=== PATIENT | male | born 1950 | race Caucasian/White ===

== ENCOUNTER 2021-05-30 10:39 | Emergency (ER) | payer OTHER ==
--- OUTSIDE RECORDS SUMMARY | 2021-05-30 10:46 | XMS REPORT | Continuity of Care Document ---
:1950 Author Organization [facility] t Address [address] [place] [address] Care Team Providers Name Role Phone Jerson Palacio MD Primary Care Physician RUTH Attending Clinician Unavailable Sailaja Babb Attending Clinician [phone] Raffi Dupont MD Attending Clinician Ruth GARZON Attending Clinician VIOLET OSPINA Attending Clinician Unavailable RUTH Admitting Clinician Unavailable VIOLET OSPINA Admitting Clinician Unavailable Problems This patient has no known problems. Allergies, Adverse Reactions, Alerts Allergy Allergy Status Severity Reaction(s) Onset Inactive Treating Comm ents Source Name Type Date Date Clinician Meperidi Propensi Active Rash 2017-[address] [facility] [address] [facility] 12[facility]17 [facility] - [facility]:00: Medical reaction 00 [facility] Erythrom Propensi Active Rash 2017-[address] [facility] [address] [facility] - adverse 00:[facility]: Medical reaction 00 Center [facility] Social History Social Habit Start Date Stop Date Quantity Comments Source Sex Assigned At [facility] Tobacco use and 2018-10-18 2018-10-18 Never used [facility] kes - exposure 00:00:00 00:00:00 [facility] Alcohol intake 2018-10-18 2018-10-18 [facility]:00 alcohol (finding) [facility] Alcohol Comment 2018-10-17 2018-10-[address] [facility] Smoking Status Start Date Stop Date Source Never sm[facility] Medications Ordered Filled Start Stop Current Ordering Indication Dosage Frequency Signature Comments Components Source Medication Medication Date Date Medication? Clinician (SIG) Name Name tamsulosin 2017-11 Yes .4mg [id number] Take 0.[address] [facility] (FLOMAX) 1-21 [id number] mg by Luke s - 0.4 mg Cap 11:00: 3D mouth 3 Medi alejandro 24 hr 19 (three) Center capsule times daily. amoxicillin 2017-11 Yes 500mg Q.[id number] Take [address] (AMOXIL) 1-21 [id number] mg by Luke s - 500 MG 11:00: 3D mouth 3 Medical capsule 19 (three) Center times daily. atorvastati 2017-11 Yes 40mg QD Take [address] [facility] (LIPITOR) 1-21 by mouth Luke s - 40 MG 11:00: daily. Medical tablet 19 Center Procedures This patient has no known procedures. Plan of Care Planned Activity Planned Date Details Comments Source Future Scheduled Test 2028-10-18 [facility]oplasm of [facility] colon (procedure) [code = 181263920] Future Scheduled Test 2020-07-29 INFLUENZA VACCINE (#1) [facility] - 00:[facility]:00 [code = INFLUENZA Medical Ce nter VACCINE (#1)] Future Scheduled Test 2014 PNEUMOCOCCAL 65+ [facility] - 00:00:00 (2 of 2 - PPSV23) Medical Ce nter [code = PNEUMOCOCCAL 65+ YRS (2 of 2 - PPSV23)] Future Appointment 2021-07-10 Juan Pablo Ospina MD, [address] [facility] - 08:00:[address] [place] [address] Future Appointment 2021-07-10 Juan Pablo Ospina MD, [address] [facility] - 08:00:[address] [place] [address] Encounters Start End Encounter Admission Attending Care Care Encounter Source Date/Time Date/Time Type Type Clinicians Facility Department ID 2019-09-03 Inpatient KEYSHAWN BLAIR [facility] [id number] [place] 00:00:00 [facility] 2021-05-05 2021-05-05 Outpatient Hol[place], U U [id number] 00:00:00 00:00:00 Phu [id number] Sailaja [id number] 2019-08-21 2019-08-21 Office Kathi Dupont BCM [id number] 08:41:13 08:56:13 Visit Nugent AMBULATOR [id number] Y [id number] 2019-08-17 2019-08-17 Office Keyshawn Miranda BC [id number] 16:18:35 16:53:42 Visit AMBULATOR [id number] Y [id number] Results Test Description Test Time Test Comments Results Result Comments Source TISSUE EXAM 2018-10-23 Surgical Pathology 17:33:00 Report Case: [id number] Authorizing Provider: Juan Pablo Ospina MD Collected: 10/18/2018 0900 Ordering Location: [facility] Received: 10/18/2018 1407 SERVICES Pathologist: Lilli Reeder MD Specimen: Polyp, Colon - Cecum, eleview lift and hot snare COLON POLYP, BIOPSY: - TUBULAR ADENOMA - NO HIGH GRADE DYSPLASIA CC/pl Signing Pathologist Direct Phone Line: [phone] nically signed by Lilli Reeder MD on 10/23/2018 at 5:33 [id number] for colon cancer Cecum colon polypThe specimen is received in a formalin-filled container and labeled with the patient's information and labeled "cecum colon polyp" and consists of a busch polyp measuring 1 x 0.6 x 0.4 cm. Resection margin is inked blue. The specimen is bisected and submitted entirely A1. CG/pl Performed
[2021-05-30 11:11] LABS: Urine Blood 3+ (Negative); Urine Glucose Negative (Negative); Urine Protein Negative (Negative); Urine pH 5.5 (5.0-7.0)
[2021-05-30 11:24] LABS: Absolute Lymphocytes (CBC) 1.2 K/uL (0.7-4.9); Basophils % 0.3 % (0-1.3); Hematocrit 44.8 % (39.6-49.0); Lymphocytes % 11.9 % (15.3-44.8); MPV 8.9 fL (7.6-11.3); RBC Red Blood Cell Count 4.54 M/uL (4.33-5.43)
[2021-05-30 11:41] LABS: Albumin 3.8 g/dL (3.4-5.0); Bilirubin Direct 0.4 mg/dL (0-0.2); Bilirubin Total 2.2 mg/dL (0.2-1.0); Potassium 4.4 mmol/L (3.5-5.1); Protein, Total 7.6 g/dL (6.4-8.2)
--- NOTE | 2021-05-30 12:05 | RAD REPORT ---
EXAM DESCRIPTION: CT - Stone Protocol - 05/30/2021 11:54 am CLINICAL HISTORY: Flank pain. FLANK PAIN TECHNIQUE: Axial images were obtained without oral or IV contrast. Lack of contrast limits solid org an and vascular assessment. The [id number] spans the entirety of the system partially obscuring uppermost abdomen and lung bases. Coronal reformatted images were obtained and reviewed. All CT scans are performed using dose optimization technique as appropriate and may include automated exposure control or mA/KV adjustment according to patient size. FINDINGS: The lower lung bustamante are clear. Small hiatal hernia. Small fat containing umbilical herni a. Bilateral inguinal hernias are present containing fat. Imaged portions of the liver and spleen show no suspicious findings on non-contrast imaging. The panc reas and adrenal glands are normal. No pathologic lymphadenopathy in the abdomen or pelvis. Mild right hydronephrosis and hydroureter is noted caused by a 4 mm stone mid right ureter. No left-s ided urinary tract stone or hydronephrosis. No bowel obstruction, free air, free fluid or abscess. Prominent diverticulosis of the colon is prese nt with retained stool. No diverticulitis findings are seen.The appendix is not identified as a discr ete structure, however, no secondary findings of appendicitis are identified. Mild to moderate lumbar degenerative changes. IMPRESSION: 4 mm stone mid right ureter resulting in mild right hydronephrosis. Prominent diverticulosis of the colon containing moderate stool.
[2021-05-30] MEDS ORDERED: MORPHINE 4 MG/ML SYR ONE (13:04)
[2021-05-30] MEDS ORDERED: ONDANSETRON 4 MG/2 ML VIAL ONE (13:04)
[2021-05-30] MEDS ORDERED: TAMSULOSIN 0.4 MG SR CAP ONE (13:05)
[2021-05-30] MEDS ORDERED: KETOROLAC 30 MG/ML INJ ONE (13:05)
--- NOTE | 2021-05-30 13:15 | ER ---
Nurse's Notes [facility] Name: Alphonse Killian Age: 70 yrs Sex: Male : 1950 Arrival Date: 05/30/2021 Time: 10:42 Bed 2 Private MD: Diagnosis: Calculus of ureter Presentation: 05/30 10:55 Chief complaint: Patient states: Right flank pain intermittent x 1.5 weeks. Coronavirus kg screen: Client denies travel out of the [place] in the last 14 days. At this time, unable to obtain information related to travel outside the [place] At this time, the client does not indicate any symptoms associated with coronavirus-19. Ebola Screen: Patient negative for fever greater than or equal to 101.5 degrees Fahrenheit, and additional compatible Ebola Virus Disease symptoms Patient denies exposure to infectious person. Patient denies travel to an Ebola-affected area in the 21 days before illness onset. Initial Sepsis Screen: Does the patient meet any 2 criteria? No. Patient's initial sepsis screen is negative. Does the patient have a suspected source of infection? No. Patient's initial sepsis screen is negative. Risk Assessment: Do you want to hurt yourself or someone else? Patient reports no desire to harm self or others. Onset of symptoms was May 20, 2021. 10:55 Method Of Arrival: Ambulatory kg 10:55 Acuity: VANESSA 3 kg Triage Assessment: 10:58 General: Appears in no apparent distress. Behavior is calm, cooperative, appropriate kg for age, quiet. Pain: Complains of pain in Right flank Pain currently is 4 out of 10 on a pain scale. at worst was 10 out of 10 on a pain scale. level that patient reports is acceptable is 3 out of 10 on a pain scale. Historical: - Allergies: 10:57 No Known Allergies; kg - PMHx: 10:58 BPH; Hypercholesterolemia; kg - PSHx: 10:57 Appendectomy; Tonsillectomy; Left knee sx; kg - Immunization history:: Adult Immunizations up to date, Client reports receiving the 2nd dose of the Covid vaccine, Date received: December 2020. - Social history:: Smoking status: Patient denies any tobacco usage or history of. Patient uses alcohol, on a daily basis. one glass of wine a night. Screenin:00 Abuse screen: Denies threats or abuse. Denies injuries from another. Nutritional kg screening: No deficits noted. Tuberculosis screening: No symptoms or risk factors identified. Fall Risk None identified. No fall in past 12 months (0 pts). No secondary diagnosis (0 pts). No IV (0 pts). Ambulatory Aid- None/Bed Rest/Nurse Assist (0 pts). Gait- Normal/Bed Rest/Wheelchair (0 pts) Mental Status- Oriented to own ability (0 pts). Total Garcia Fall Scale indicates No Risk (0-24 pts). Assessment: 11:00 General: Appears in no apparent distress. Behavior is calm, cooperative, appropriate ll1 for age. Pain: Complains of pain in R lower back Quality of pain is described as aching. Neuro: No deficits noted. Cardiovascular: No deficits noted. Respiratory: No deficits noted. GI: Abdomen is flat, Bowel sounds present X 4 quads. Abd is soft and non tender X 4 quads. Reports. : Denies burning with urination. 12:00 Reassessment: No changes from previously documented assessment. Patient and/or family ll1 updated on plan of care and expected duration. Pain level reassessed. Patient is alert, oriented x 3, equal unlabored respirations, skin warm/dry/pink. 13:00 Reassessment: No changes from previously documented assessment. Patient and/or family ll1 updated on plan of care and expected duration. Pain level reassessed. Patient is alert, oriented x 3, equal unlabored respirations, skin warm/dry/pink. Patient states feeling better. Vital Signs: 10:55 BP 133 / 79; Pulse 63; Resp 20; Temp 98.4(O); Pulse Ox 97% ; Weight 83.1 kg (R); Height kg 6 ft. 0 in. (182.88 cm); Pain 4/10; 13:28 BP 116 / 66; Pulse 55; Resp 17; Pulse Ox 94% on R/A; ll1 13:28 Pain 1/10; ll1 10:55 Body Mass Index 24.85 (83.10 kg, 182.88 cm) kg ED Course: 10:42 Patient arrived in ED. mr 10:54 Fox Martinez PA is PHCP. jm 10:54 Otis Moore MD is Attending Physician. jm 10:57 Triage completed. kg 11:00 Arm band placed on right wrist. kg 11:01 Sharan Morton, RN is Primary Nurse. ll1 11:02 Patient placed in an exam room, on a stretcher. ll1 11:05 Inserted saline lock: 22 gauge in right antecubital area, using aseptic technique. ll1 Blood collected. 11:17 Patient has correct armband on for positive identification. Bed in low position. Call ll1 light in reach. Side rails up X 1. 11:54 CT Stone Protocol In Process Unspecified. EDMS 12:55 Basic Metabolic Panel Sent. sv 13:28 No provider procedures requiring assistance completed. IV discontinued, intact, ll1 bleeding controlled, No redness/swelling at site. Pressure dressing applied. Administered Medications: 12:52 Drug: Flomax (tamsulosin) 0.4 mg Route: PO; ll1 13:29 Follow up: Response: No adverse reaction; RASS: Alert and Calm (0) 1 12:52 Drug: Ketorolac 15 mg Route: IVP; Site: right antecubital; 1 13:29 Follow up: Response: No adverse reaction; Pain is decreased; RASS: Alert and Calm (0) ll1 12:52 Drug: morphine 4 mg Route: IVP; Site: right antecubital; ll1 13:29 Follow up: Response: No adverse reaction; Pain is decreased; RASS: Alert and Calm (0) ll1 12:52 Drug: Zofran (Ondansetron) 4 mg Route: IVP; Site: right antecubital; ll1 13:29 Follow up: Response: No adverse reaction 1 Outcome: 13:15 Discharge ordered by . codi 13:29 Discharged to home ambulatory. ll1 13:29 Condition: stable 13:29 Discharge instructions given to patient, Instructed on discharge instructions, follow up and referral plans. Demonstrated understanding of instructions, follow-up care. 13:30 Patient left the ED. 1 Signatures: Dispatcher [employer] EDMS Yolanda Melo, Fox Spicer RN, PA PA jmm Rivera, Mary mr Sharan Morton, RN RN ll1 Zoya Wolff RN RN kg
--- NOTE | 2021-05-30 13:15 | EDPHYS ---
Physician Documentation [facility] Name: Alphonse Killian Age: 70 yrs Sex: Male : 1950 Arrival Date: 05/30/2021 Time: 10:42 Bed 2 Private MD: ED Physician Otis Moore HPI: 05/30 11:15 This 70 yrs old Male presents to ER via Ambulatory with complaints of jmm Possible Kidney Stone. 11:15 The patient complains of pain in the right flank. Onset: The symptoms/episode jmm began/occurred gradually, 1.5 week(s) ago. Modifying factors: The symptoms are alleviated by nothing. the symptoms are aggravated by nothing. Associated signs and symptoms: Pertinent negatives: diarrhea, hematuria, pain radiating to the lower extremities, vomiting. The patient has not experienced similar symptoms in the past. This is 70/m with a history of bph, hlp that presents to the ED with complaints of right flank pain. Patient has concerns he may have a kidney stone. Denies vomiting, abdominal pain, diarrhea, gross hematuria. . Historical: - Allergies: 10:57 No Known Allergies; kg - PMHx: 10:58 BPH; Hypercholesterolemia; kg - PSHx: 10:57 Appendectomy; Tonsillectomy; Left knee sx; kg - Immunization history:: Adult Immunizations up to date, Client reports receiving the 2nd dose of the Covid vaccine, Date received: December 2020. - Social history:: Smoking status: Patient denies any tobacco usage or history of. Patient uses alcohol, on a daily basis. one glass of wine a night. ROS: 11:15 Constitutional: Negative for fever, chills, and weight loss, Cardiovascular: Negative jmm for chest pain, palpitations, and edema, Respiratory: Negative for shortness of breath, cough, wheezing, and pleuritic chest pain. 11:15 Back: Positive for pain with movement. 11:15 All other systems are negative. Exam: 11:15 Constitutional: This is a well developed, well nourished patient who is awake, alert, jmm and in no acute distress. Head/Face: atraumatic. Eyes: EOMI, no conjunctival erythema appreciated ENT: Moist Mucus Membranes Neck: Trachea midline, Supple Chest/axilla: Normal chest wall appearance and motion. Cardiovascular: Regular rate and rhythm. No edema appreciated Respiratory: Normal respirations, no respiratory distress appreciated Abdomen/GI: Non distended, soft 11:15 MS/ Extremity: Moves all extremities, no obvious deformities appreciated, no edema noted to the lower extremities Neuro: Awake and alert, normal gait Psych: Behavior is normal, Mood is normal, Patient is cooperative and pleasant 11:15 Back: pain, that is mild, of the right mid back. Vital Signs: 10:55 BP 133 / 79; Pulse 63; Resp 20; Temp 98.4(O); Pulse Ox 97% ; Weight 83.1 kg (R); Height kg 6 ft. 0 in. (182.88 cm); Pain 4/10; 13:28 BP 116 / 66; Pulse 55; Resp 17; Pulse Ox 94% on R/A; ll1 13:28 Pain 1/10; ll1 10:55 Body Mass Index 24.85 (83.10 kg, 182.88 cm) kg MDM: 11:13 Patient medically screened. codi 13:10 Data reviewed: vital signs, nurses notes. Counseling: I had a detailed discussion with codi the patient and/or guardian regarding: the historical points, exam findings, and any diagnostic results supporting the discharge/admit diagnosis, lab results, radiology results, the need for outpatient follow up, to return to the emergency department if symptoms worsen or persist or if there are any questions or concerns that arise at home. ED course: Patient is alert and non toxic in appearance in the ED. Will follow up with urology for evaluation. Patient is otherwise given strict return precautions. patient understood and agrees with the plan of care. . 05/30 11:11 Order name: Urine Dipstick-Ancillary; Complete Time: 11:47 [facility] 05/30 11:13 Order name: Basic Metabolic Panel [facility] 05/30 11:13 Order name: CBC with Diff; Complete Time: 11:47 [facility] 05/30 11:13 Order name: Hepatic Function; Complete Time: 11:47 [facility] 05/30 11:13 Order name: Lipase; Complete Time: 11:47 [facility] 05/30 11:14 Order name: Basic Metabolic Panel; Complete Time: 11:47 [facility] 05/30 11:13 Order name: IV Saline Lock; Complete Time: 11:37 [facility] 05/30 11:13 Order name: Labs collected and sent; Complete Time: 11:37 [facility] 05/30 11:13 Order name: CT Stone Protocol; Complete Time: 12:10 [facility] 05/30 11:47 Order name: Urine Dipstick-Ancillary (obtain specimen); Complete Time: 12:15 [facility] Administered Medications: 12:52 Drug: Flomax (tamsulosin) 0.4 mg Route: PO; ll1 13:29 Follow up: Response: No adverse reaction; RASS: Alert and Calm (0) ll1 12:52 Drug: Ketorolac 15 mg Route: IVP; Site: right antecubital; ll1 13:29 Follow up: Response: No adverse reaction; Pain is decreased; RASS: Alert and Calm (0) ll1 12:52 Drug: morphine 4 mg Route: IVP; Site: right antecubital; ll1 13:29 Follow up: Response: No adverse reaction; Pain is decreased; RASS: Alert and Calm (0) ll1 12:52 Drug: Zofran (Ondansetron) 4 mg Route: IVP; Site: right antecubital; ll1 13:29 Follow up: Response: No adverse reaction ll1 Disposition Summary: 05/30/21 13:15 Discharge Ordered Location: Home [facility] Condition: Stable [facility] Diagnosis - Calculus of ureter [facility] Followup: [facility] - With: Private Physician - When: 2 - 3 days - Reason: Recheck today's complaints, Continuance of care, Re-evaluation by your physician Discharge Instructions: - Discharge Summary Sheet [facility] - Kidney Stones [facility] - Dietary Guidelines to Help Prevent Kidney Stones [facility] Forms: - Medication Reconciliation Form [facility] - Thank You Letter [facility] - Antibiotic Education [facility] - Prescription Opioid Use [facility] Addendum: 06/01/2021 13:32 Co-signature as Attending Physician, Otis Moore MD I agree with the assessment and k dr plan of care. Signatures: Dispatcher [employer] EDOtis Christensen MD MD kdr Mickail, Joel, PA PA [facility] Sharan Morton, RN RN ll1 Zoya Wolff RN RN kg
[2021-05-30 13:45] VITALS: TEMP 98.4
[2021-05-30 13:46] VITALS: BP 116/66; O2SAT 94
== END 2021-05-30 13:30 | disposition home or self-care (01) ==
LOC: ER 10:39
DX: N20.1 Calculus of ureter (principal)
CPT/HCPCS: 85025; 80048; 36415; 80076; 81003; 83690; 76377; 74176; 96375; 96374; 99284; J2405